=== PATIENT | male | born 1945 | race Caucasian/White ===

== ENCOUNTER → 2016-04-07 | Outpatient (CLI) | payer MEDICARE, OTHER ==
--- NOTE | 2016-04-07 10:56 | CT ---
EXAM DESCRIPTION: CT CHEST WITHOUT IV CONTRAST CLINICAL HISTORY: 71 y/o M, pulmonary nodule followup COMPARISON: 12 December 2014 TECHNIQUE: Thin-section noncontrast axial CT images are obtained according to our protocol. Reconstructed MPR images are created and reviewed as well. FINDINGS: There is marked interval enlargement of a right lower lobe pulmonary nodule since the previous exam. This is a multi lobular/somewhat spiculated pulmonary nodule measuring 4.0 x 3.6 cm. Extensive emphysematous changes of the lungs are present. 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 Indeterminate but prominent mediastinal lymph nodes are present. Pretracheal lymph node just to the right of the midline measures 1.2 cm. Soft tissues of the upper abdomen including adrenal glands unremarkable. IMPRESSION: 1. Interval marked enlargement right lower lobe pulmonary nodule consistent with bronchogenic carcinoma. CT-guided biopsy recommended. 2. Indeterminate but prominent mediastinal lymph nodes 3. Advanced chronic lung disease Electronically signed by: Zaire Garcia MD 04/07/2016 10:54
== END ==
LOC: CT 09:52
PROVIDERS: ATTEND Internal Medicine
DX: R91.8 Other nonspecific abnormal finding of lung field (principal); J98.4 Other disorders of lung

== ENCOUNTER → 2017-01-27 | Outpatient (CLI) | payer MEDICARE, OTHER | LOC: GMAB 15:19 | PROVIDERS: ATTEND Family Medicine | DX: I73.9 Peripheral vascular disease, unspecified (principal); G60.3 Idiopathic progressive neuropathy ==

== ENCOUNTER → 2017-09-18 | Outpatient (CLI) | payer MEDICARE, OTHER | LOC: LAB.O 09:00 | PROVIDERS: ATTEND Internal Medicine | DX: R05 Cough (principal); J44.9 Chronic obstructive pulmonary disease, unspecified ==

== ENCOUNTER → 2018-02-23 | Outpatient (CLI) | payer MEDICARE, OTHER ==
--- NOTE | 2018-02-23 20:34 | CT ---
EXAM DESCRIPTION: Chest w/o Contrast : Computed Tomography. CLINICAL HISTORY: PNEUMONIA. Previous partial right lower lobectomy for lung cancer, May 2016. COMPARISON: CT scan chest without contrast 04/07/2016. TECHNIQUE: Spiral-axial scans at 5 x 5 mm intervals through the lungs and thorax without IV contrast. 2.5 x 5 mm lung algorithm axial reconstructions. Coronal and sagittal 2.0 Mm reconstructions. Total Exam DLP: 368.04 mGy-cm. This exam was performed according to our departmental dose-optimization program which includes automated exposure control, adjustment of the mA and/or kV according to patient size and/or use of iterative reconstruction technique; to reduce radiation dose to as low as reasonably achievable (ALARA). Nodule measurements under 10 mm are given as mean value of 3 axes diameters. FINDINGS: Lungs and large airways: Postsurgical parenchymal changes in the right lower lobe where previous carcinoma was resected. Pleural changes are also noted at this level. A mostly circumscribed solid nodule with a slightly bilobed configuration and minimal spiculation measuring 10.7 x 7.5 x 7.8 mm is visualized and is associated with calcification or suture material in the inferior aspect of this nodule. Extensions are noted to the pleura and also into the anterior parenchyma on the surgical site. Inferior to the surgical site are not dilated airspaces associated with the pleura and the parenchyma in the medial posterior recess of the right lower lobe. Other smaller blebs can be seen in the parenchyma more superiorly in the lobe with prominent reticular nodular densities throughout this lobe and bilaterally in both lungs from the apices to the bases. Thickened septa and dilated airspaces in the base of the right middle lobe medially. Bulla and blebs in the bilateral upper lobes, more numerous on the right than the left. Anterior and posterior apical pleural thickening is stable. Minimal apical pleural thickening in the left upper lobe is also stable. Scarring in the inferior lingula. Scarring in the posterior recess of the left lower lobe with dilated airspaces blebs and bulla. Calcified subpleural nodule in the posterior aspect of the superior segment of the left lower lobe. Thickened septa are also noted in the left lower lobe. Pleural spaces: Lateral focal pleural thickening. No bilateral effusion or pneumothorax. Mediastinum and Shraddha: Evaluation limited due to lack of IV contrast lymph nodes in the superior anterior middle mediastinum but no large soft tissue masses. Short axis XIV mm, 8 mm pretracheal nodes and millimeter azygous node. These are larger since the prior study. Stable since the prior study. Great vessels and Heart: Evaluation limited due to lack of IV contrast.. Coronary artery calcifications. Atherosclerotic calcifications of the proximal brachiocephalic vessels and aortic arch. Soft tissues of neck base, axillae, and chest wall: Evaluation limited due to lack of IV contrast.. No soft tissue masses in the bilateral axilla are enlarged lymph nodes. Upper abdomen: No fluid or free air in the included peritoneal cavity. Spleen and adrenal glands normal size and density. Atherosclerotic calcification of the aorta. Osseous structures: Spondylosis at some levels of the thoracic spine. Minimal arthrosis bilateral glenohumeral joints. No blastic or lytic lesions. IMPRESSION: 1. Posterior postsurgical partial right lower lobectomy changes after resection of lung cancer. Small calcifications are noted in the surgical site. Also a 10 x 8 x 7 mm solid nodule with partially circumscribed and partially spiculated margins at the surgical site. Consider CT at 3 month interval, PET/CT, or tissue sampling. Diffuse emphysematous changes in the lungs with more dilated airspaces in the bilateral upper lobes and increased reticulonodular disease in the bilateral lower lobes. 2. Superior paratracheal nodes in the azygos nodes in the mediastinum are larger than on the prior study. Electronically signed by: Isaac Zapien MD 02/23/2018 8:32 PM [facility]
== END ==
LOC: CT 13:18
PROVIDERS: ATTEND Internal Medicine
DX: J18.9 Pneumonia, unspecified organism (principal); R91.1 Solitary pulmonary nodule; Z85.118 Personal history of other malignant neoplasm of bronchus and lung; Z98.890 Other specified postprocedural states

== ENCOUNTER → 2018-03-15 | Outpatient (CLI) | payer MEDICARE, OTHER | LOC: GMAE 11:15 | PROVIDERS: ATTEND Family Medicine | DX: Z79.899 Other long term (current) drug therapy (principal) ==

== ENCOUNTER → 2018-04-12 | Outpatient (CLI) | payer MEDICARE, OTHER | LOC: GMAE 11:06 | PROVIDERS: ATTEND Family Medicine | DX: R94.6 Abnormal results of thyroid function studies (principal) ==

== ENCOUNTER → 2018-05-12 | Outpatient (CLI) | payer MEDICARE, OTHER | LOC: CT 07:57 | PROVIDERS: ATTEND Internal Medicine Hematology & Oncology | DX: C34.31 Malignant neoplasm of lower lobe, right bronchus or lung (principal) ==

== ENCOUNTER → 2018-05-12 | Outpatient (CLI) | payer MEDICARE, OTHER ==
--- NOTE | 2018-05-13 08:47 | CT ---
EXAM DESCRIPTION: Chest w/Contrast : Computed Tomography. CLINICAL HISTORY: 73 years Male Malignant neoplasm of lower lobe, right bronchus or lung COMPARISON: CT scan of the chest without contrast 02/23/2018. TECHNIQUE: Spiral-axial scans at a 5 x 5 mm intervals through the lungs and thorax with IV contrast. 2.5 x 5 mm lung algorithm axial reconstructions. Coronal and sagittal 2.0 Mm reconstructions. No adverse reactions. Total Exam DLP: 507.46 mGy-cm. This exam was performed according to our departmental dose-optimization program which includes automated exposure control, adjustment of the mA and/or kV according to patient size and/or use of iterative reconstruction technique; to reduce radiation dose to as low as reasonably achievable (ALARA). Nodule measurements under 10 mm are given as mean value of 3 axes diameters. FINDINGS: Lungs and large airways: Prominent blebs and bulla in the upper lobes in a paraseptal distribution. Bohler also abutting the pleura. Pleural parenchymal scarring in the inferior lingula and the inferior middle lobe pleural parenchymal scarring also in the right lower lobe medially with at least one large bulla is stable. Reticular nodular pattern is not as prominent bilaterally as on the prior study. Improved aeration in the left lower lobe. 12 x 7 mm subpleural groundglass density in the lateral left lower lobe is stable. Subpleural versus pleural calcified nodule abutting the posterior lateral superior segment left lower lobe is stable. No abnormal nodules or new nodules, masses, or focal infiltrate since the prior study. Pleural spaces: No effusion or pneumothorax bilaterally. Bilateral apical pleural thickening stable. Mediastinum and Shraddha: Again noted are calcified and noncalcified lymph nodes with no increase in number or enlargement. No new soft tissue masses. Great vessels and Heart: Atherosclerotic calcification in the proximal brachiocephalic vessels, aortic arch and descending thoracic aorta, and coronary arteries. Soft tissues of neck base, axillae, and chest wall: Small soft tissue density on the medial right pectoral muscle above the level of the right nipple is stable. Normal sized lymph nodes. Upper abdomen: No fluid or free air in the included peritoneal cavity. Gallbladder partially visualized. Normal size and enhancement of the adrenal glands. Osseous structures: Spondylosis of the included thoracic spine. No sclerotic or blastic lesions. IMPRESSION: 1. Emphysematous changes in the lungs. Reticular nodular bilateral densities have decreased since the prior study. Pleural parenchymal scarring in the inferior lingula, inferior right middle lobe, and bilateral lung bases right more than left stable since the prior study. Stable postresection scarring and thickening in the right lower lobe, with partially nodular and partially spiculated appearance. No abnormal nodules, no new nodules masses or focal infiltrates bilaterally. Consider follow-up chest CT scan with IV contrast in 6-12 month interval. See [facility] Best Practice recommendations based upon Fleischner Society 2017 recommendations for single nodule follow-up. Please see below*. * 2017 Fleischner Society Recommendations for Single Solid Lung Nodule Follow-Up based on size (average of long- and short-axis diameters) 6-8 mm Low-Risk Patient: CT at 6-[address] at 18-24 months 6-8 mm High-Risk Patient: CT at 6-[address] at 18-24 months Electronically signed by: Isaac Zapien MD 05/13/2018 8:45 AM [employer]
== END ==
LOC: CT 10:00
PROVIDERS: ATTEND Internal Medicine Hematology & Oncology
DX: C34.31 Malignant neoplasm of lower lobe, right bronchus or lung (principal)

== ENCOUNTER → 2018-10-04 | Outpatient (CLI) | payer MEDICARE, OTHER ==
--- NOTE | 2018-10-04 15:57 | CT ---
EXAM DESCRIPTION: Chest w/Contrast CLINICAL HISTORY: 73 years, Male, Malignant neoplasm COMPARISON: Previous CT of the chest May 12, 2018 TECHNIQUE: Thin-section noncontrast axial CT images are obtained according to our protocol. Reconstructed MPR images are created and reviewed as well. FINDINGS: Lungs: Spiculated densities in the right apex are consistent with areas of scarring, stable compared to previous study. Lesser scarring in the left apex. No growing mass like density in the right apex to suggest scar carcinoma. Centrilobular and subpleural paraseptal emphysematous changes of moderate severity. Calcified granuloma in the superior segment left lower lobe. Scarring is seen in the medial aspect of the anterior segment right upper lobe and in the medial lingula as well as inferior lingula and right middle lobe. There are areas of bronchiolectasis related to scarring. In the right lung base, masslike density with spiculated margins appears stable since previous study and measures 1.4 x 0.9 cm unchanged. Adjacent linear densities are consistent with scarring and this focal density is thought to be scarring as well. No enlarging rounded or masslike area has developed in this area of scarring to suggest scar carcinoma. Other tiny granulomatous nodules appear stable. Mediastinum: Lymph nodes are unchanged in size and appearance. Prominent pretracheal node measures 8 mm on the present study compared to 9 mm on previous exam. Other nodes appear stable except for the right azygos node which is larger measuring 7 mm short axis dimension compared to 5 mm on previous study. A node anterior to the right upper lobe bronchus also appears more prominent now measuring 7 mm. Inflammatory reactive changes are thought more likely than a malignant process. Small nodes in the hilar regions bilaterally. Debris is seen in the left lower lobe bronchus with air bubbles suggesting frothy fluid or mucus rather than endobronchial neoplasm. This is new compared to the previous study. Such findings might be predictive of productive cough or aspiration. Clinical correlation recommended. Normal vascular contours. Heart size is normal with no pericardial effusion. Chest wall/axilla: No mass or adenopathy. Lower neck/supraclavicular: No mass or adenopathy. Upper abdomen: Unremarkable upper abdominal viscera. Coronal and sagittal reformatted images confirm the findings. Previous CT April 07, 2016 showed lobulated mass in the right lower lobe 4 cm consistent with bronchogenic carcinoma. No change to suggest local recurrence. IMPRESSION: Masslike areas of scarring in the right upper lobe and right lower lobe appear stable compared to the previous study. Frothy fluid in the left lower lobe bronchi. See above. Mildly increased prominence of mediastinal lymph nodes probably reactive. This exam was performed according to our departmental dose-optimization program, which includes automated exposure control, adjustment of the mA and/or kV according to patient size and/or use of iterative reconstruction technique. Total DLP equals 453.16 mGycm. Electronically signed by: Arslan Miles MD 10/04/2018 3:55 PM CDT
== END ==
LOC: CT 13:18
PROVIDERS: ATTEND Internal Medicine Hematology & Oncology
DX: C34.31 Malignant neoplasm of lower lobe, right bronchus or lung (principal); J81.0 Acute pulmonary edema

== ENCOUNTER → 2019-04-29 | Outpatient (CLI) | payer MEDICARE, OTHER ==
--- NOTE | 2019-04-29 10:04 | MRI ---
EXAM DESCRIPTION: Brain w/oContrast CLINICAL HISTORY: TIA G45.8 COMPARISON: None available TECHNIQUE: Non contrast MRI of the brain is performed according to our usual protocol including multiplanar multi sequence technique. FINDINGS: Sagittal T1 images show intact corpus callosum. Normal pituitary gland with normal T1 appearance of the javier and medulla and upper cervical cord. Normal signal intensity within the clivus and calvarium. Axial T2 fat sat images reveal preservation of intracranial vascular flow voids. Normal angeles matter and white matter T2 signal intensity. Prominent ventricles and sulci consistent with age-related cerebral volume loss. The globes appear intact and symmetrical. No abnormal fluid signal in the paranasal sinuses, tympanic cavities or mastoid air cells. Axial flair images show normal signal intensity of the angeles matter and the white matter. No microvascular ischemic changes. Diffusion weighted images are negative for focal intense increased signal intensity in the brain parenchyma to suggest restricted diffusion. ADC mapping is negative. Axial T1 images show normal angeles-white matter differentiation. No high signal intensity hemorrhagic lesion of the brain parenchyma. No subdural hematoma. Axial susceptibility weighted images are positive for focal signal loss in the posterior right parietal angeles matter consistent with small calcification or hemosiderin deposition from previous microhemorrhage. IMPRESSION: No acute intracranial pathologic process. Electronically signed by: Arslan Miles MD 04/29/2019 10:03 AM [employer]ITER
== END ==
LOC: MRI 06:41
PROVIDERS: ATTEND Family Medicine
DX: G45.8 Other transient cerebral ischemic attacks and related syndromes (principal)

== ENCOUNTER → 2019-06-09 | Outpatient (CLI) | payer MEDICARE, OTHER | DX: E11.9 Type 2 diabetes mellitus without complications (principal) ==

== ENCOUNTER → 2020-03-14 | Outpatient (CLI) | payer MEDICARE, OTHER | LOC: GMAE 11:12 | PROVIDERS: ATTEND Family Medicine | DX: C34.31 Malignant neoplasm of lower lobe, right bronchus or lung (principal); Z12.5 Encounter for screening for malignant neoplasm of prostate; E11.9 Type 2 diabetes mellitus without complications; E78.2 Mixed hyperlipidemia | CPT/HCPCS: 82378; 84443; G0103 ==